=== PATIENT | male | born 2000 | race Caucasian/White ===

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

== ENCOUNTER 2019-02-01 14:34 | Emergency (ER) | payer OTHER ==
[~2019-02-01] VITALS: Ht 177.8 cm; Wt 106.5 kg
[~2019-02-01 14:34] MED LIST changes: +ALPR1TAB7 PO; +CHOL500051 PO; -CIPR500T4 PO; -FLUO20CA22 PO; +LITH300T PO; -METR-122 PO; -PROP10TA6 PO; +QUET100T32; +QUET400T11 PO; -TRA50 PO; +VENL150C94 PO; +ZOLP10TA5 PO
[2019-02-01 14:35] VITALS: Ht 177.8 cm; Wt 106.5 kg
--- NOTE | 2019-02-01 15:53 | ERD ---
ER Documentation Chief Complaint Chief Complaint AP X 1 WEEK HPI 18-year-old male, presents the emergency department, complaining of abdominal pain for 1 week, the pain is described as colicky, intermittent, 01/07. The patient has history of diverticulitis and he feels like the symptoms are similar but less intense. He denies fever, no chills, no diarrhea or constipation, no blood in the stools, no nausea vomiting. ROS All systems reviewed and are negative except as per history of present illness. Medications Home Meds Active Scripts Acetaminophen* (Tylenol*) 325 Mg Tablet, 2 TAB PO Q6 PRN for PAIN AND OR ELEVATED TEMP, #20 TAB Prov:JASPER MILLARD MD 02/01/19 Metronidazole* (Flagyl*) 500 Mg Tablet, 500 MG PO TID for 10 Days, #30 TAB Prov:JASPER MILLARD MD 02/01/19 Ciprofloxacin Hcl* (Ciprofloxacin Hcl*) 500 Mg Tablet, 500 MG PO BID for 10 Days, TAB Prov:JASPER MILLARD MD 02/01/19 Reported Medications Quetiapine Fumarate* (Quetiapine Fumarate*) 100 Mg Tablet 11/29/18 Alprazolam* (Alprazolam*) 1 Mg Tablet, 1 MG PO BID for 30 Days, #60 11/29/18 Quetiapine Fumarate* (Quetiapine Fumarate*) 400 Mg Tablet, 400 MG PO QHS for 30 Days, #30 TAKE 1 TABLET (400 MG) BY MOUTH AT BEDTIME NEEDED FOR INSOMNIA; 30 Days Quantity #30 11/29/18 Zolpidem Tartrate* (Zolpidem Tartrate*) 10 Mg Tablet, 10 MG PO QHS for 30 Days, #30 11/29/18 [place] Carbonate ([place] Carbonate) 300 Mg Tablet.sa, 600 MG PO QHS TAKE ONE TABLET BY MOUTH AT BEDTIME FOR 4 DAYS THEN 2 AT BEDTIME; 30 Days 11/29/18 Venlafaxine Hcl* (Venlafaxine Hcl ER*) 150 Mg Cap.er.24h, 150 MG PO QHS for 30 Days, #30 11/29/18 Cholecalciferol (Vitamin D3) (Vitamin D3) 50,000 Unit Capsule, 33788 U PO QFRI 11/29/18 Allergies Allergies: Coded Allergies: No Known Drug Allergies (Verified Allergy, Unknown, 03/06/18) PMhx/Soc History of Surgery: No Anesthesia Reaction: No Hx Neurological Disorder: No Hx Respiratory Disorders: No Hx Cardiac Disorders: No Hx Psychiatric Problems: Yes Hx Miscellaneous Medical Probl: Yes (DIVERTICULITIS-2018) Hx Alcohol Use: No Hx Substance Use: Yes (MARIJUANA) Hx Tobacco Use: No Smoking Status: Never smoker FmHx Family History: No diabetes, No coronary disease Physical Exam Vitals Vital Signs Date Temp Pulse Resp B/P (MAP) Pulse Ox O2 O2 Flow FiO2 Time Delivery Rate 02/01/19 98.0 92 17 130/68 98 Room Air 18:14 (88) 02/01/19 98.4 98 20 134/79 97 14:35 (97) Physical Exam Const: No acute distress Head: Atraumatic Eyes: Normal Conjunctiva ENT: Normal External Ears, Nose and Mouth. Neck: Full range of motion. No meningismus. Resp: Clear to auscultation bilaterally Cardio: Regular rate and rhythm, no murmurs Abd: Soft, mild tenderness to deep palpation but no definitive peritoneal signs, non distended. Normal bowel sounds Skin: No petechiae or rashes Back: No midline or flank tenderness Ext: No cyanosis, or edema Neur: Awake and alert Psych: Normal Mood and Affect Result Diagram: 02/01/19 1604 02/01/19 1604 Results 24 hrs Laboratory Tests Test 02/01/19 16:04 White Blood Count 15.9 10^3/ul Red Blood Count 5.00 10^6/ul Hemoglobin 14.4 g/dl Hematocrit 43.3 % Mean Corpuscular Volume 86.6 fl Mean Corpuscular Hemoglobin 28.8 pg Mean Corpuscular Hemoglobin Concent 33.3 g/dl Red Cell Distribution Width 14.0 % Platelet Count 339 10^3/UL Mean Platelet Volume 9.4 fl Immature Granulocytes % 0.400 % Neutrophils % 72.5 % Lymphocytes % 17.5 % Monocytes % 9.0 % Eosinophils % 0.3 % Basophils % 0.3 % Nucleated Red Blood Cells % 0.0 /100WBC Immature Granulocytes # 0.070 10^3/ul Neutrophils # 11.6 10^3/ul Lymphocytes # 2.8 10^3/ul Monocytes # 1.4 10^3/ul Eosinophils # 0.0 10^3/ul Basophils # 0.0 10^3/ul Nucleated Red Blood Cells # 0.0 10^3/ul Urine Color YELLOW Urine Clarity CLEAR Urine pH 5.0 Urine Specific [place] 1.025 Urine Ketones NEGATIVE mg/dL Urine Nitrite NEGATIVE mg/dL Urine Bilirubin NEGATIVE mg/dL Urine Urobilinogen 1+ mg/dL Urine Leukocyte Esterase NEGATIVE [place]/ul Urine Microscopic RBC 0 /HPF Urine Microscopic WBC 1 /HPF Urine Mucus MANY /HPF Urine Hemoglobin 1+ mg/dL Urine Glucose NEGATIVE mg/dL Urine Total Protein NEGATIVE mg/dl Sodium Level 144 mmol/L Potassium Level 4.3 mmol/L Chloride Level 104 mmol/L Carbon Dioxide Level 28 mmol/L Anion Gap 12 Blood Urea Nitrogen 8 mg/dl Creatinine 0.80 mg/dl Est Glomerular Filtrat Rate mL/min > 60 mL/min Glucose Level 95 mg/dl Calcium Level 9.7 mg/dl Total Bilirubin 1.4 mg/dl Direct Bilirubin 0.00 mg/dl Indirect Bilirubin 1.4 mg/dl Aspartate Amino Transf (AST/SGOT) 19 IU/L Alanine Aminotransferase (ALT/SGPT) 82 IU/L Alkaline Phosphatase 92 IU/L Total Protein 8.0 g/dl Albumin 4.6 g/dl Globulin 3.40 g/dl Albumin/Globulin Ratio 1.35 Lipase 30 U/L Current Medications Medications Dose Sig/Jostin Start Time Status Last (Trade) Ordered Route PRN Stop Time Admin Dose Reason Admin Sodium 1,000 ml @ Q1H STAT 02/01/19 DC 02/01/19 Chloride 1,000 mls/hr IV 15:54 02/01/19 16:11 16:53 Ondansetron 4 mg ONCE STAT 02/01/19 DC 02/01/19 HCl (Zofran IV 15:54 02/01/19 16:10 Inj) 16:01 Famotidine 20 mg ONCE STAT 02/01/19 DC 02/01/19 (Pepcid Iv) IV 15:54 02/01/19 16:10 16:01 Piperacillin 100 ml @ ONCE ONCE 02/01/19 DC 02/01/19 Sod/ 200 mls/hr IVPB 16:00 02/01/19 16:13 Tazobactam 16:29 Sod IV Flush 10 ml STK-MED 02/01/19 DC (NS 10 ml) ONCE .ROUTE 16:43 02/01/19 16:44 Sodium 100 ml @ ud STK-MED 02/01/19 DC Chloride ONCE .ROUTE 16:43 02/01/19 16:44 Iohexol 150 ml STK-MED 02/01/19 DC (Omnipaque ONCE .ROUTE 16:43 02/01/19 300mg/ ml) 16:44 Patient: EB KING : 2000 Age: 18 Sex: M MR #: [id number] DOS: 02/01/19 1554 Ordering MD: JASPER MILLARD MD Location: [facility] Room/Bed: PROCEDURE: CT Abdomen and Pelvis with contrast CLINICAL INDICATION: Abdominal pain TECHNIQUE: Transaxial computed tomographic images of the abdomen and pelvis were obtained following the uneventful administration of 90 mL Omnipaque-300 intravenous contrast according to standard protocol. Coronal and sagittal reformatted images were provided. DICOM images are available. Radiation dose: CTDIvol (mGy) = 22.22; total DLP (mGy.cm) = 1502.39. One or more of the following dose reduction techniques were used: - Automated exposure control. - Adjustment of the mA and/or kV according to patient size. - Use of iterative reconstruction technique. COMPARISON: CT of the abdomen and pelvis dated 03/06/2018. FINDINGS: The visualized lung bases are clear. There is no pleural effusion. The liver is enlarged measuring 25 cm in craniocaudal diameter and diffusely hypoattenuating representing diffuse hepatic steatosis. No focal hepatic lesion is seen. The gallbladder is contracted. The spleen, pancreas, adrenal glands, and kidneys are normal. There is no evidence of intestinal obstruction. There is sigmoid diverticulosis with long segment wall thickening of the sigmoid colon with extensive pericolonic fluid and fat stranding representing acute diverticulitis. The few locules of gas along the anterior wall of the inflamed sigmoid colon likely represent a contained microperforation (series 3 image 154). Colonic diverticula are also seen in the descending colon. The appendix is normal. There is no free intraperitoneal air. There is no suspicious mesenteric or retroperitoneal lymphadenopathy. A few prominent subcentimeter lymph nodes are identified adjacent to the sigmoid colon measuring up to 7 mm in short axis (series 3 image 144). The abdominal aorta is of normal diameter. Urinary bladder is normal. The prostate is within normal limits. The osseous structures of the abdomen and pelvis are intact. IMPRESSION: 1. Findings consistent with acute diverticulitis of the sigmoid colon with wall thickening of the sigmoid colon and extensive pericolonic fluid and fat stranding. No pericolonic abscess. A few locules of gas adjacent to the inflamed sigmoid colon likely represent microperforation. No free intraperitoneal air. 2. Hepatomegaly with diffuse hepatic steatosis. The findings were discussed with Dr. Sanches in the ER at 05:50 p.m. on 02/01/[address] Gonzalez. Procedures/MDM Vital signs stable. Differential diagnosis include but not limited to: UTI, colitis, gastroenteritis, kidney stones, irritable bowel syndrome, inflammatory bowel syndrome, malabsorption syndrome, cholelithiasis, food intolerance, medication side effect, pancreatitis, diverticulitis, bowel obstruction. Physical examination and clinical presentation consistent most likely with diverticulitis. During the ED course the patient remained stable, no new complaints. The patient received treatment with IV fluids and IV medications presenting overall improvement of the symptoms. Results and clinical impression discussed with the patient who agrees with management. The patient is stable to be treated outpatient and will be discharged home; some side effects of prescribed medications (headache, rash, nausea, vomiting, diarrhea, drowsiness, habituation, bleeding, hypertension, interactions with other medications) were reviewed. Instructions explained and given directly by me to the patient with acknowledgme nt and demonstrated understanding. Disclaimer: Inadvertent spelling and grammatical errors are likely due to EHR/dictation software use and do not reflect on the overall quality of patient care. Also, please note that the electronic time recorded on this note does not necessarily reflect the actual time of the patient encounter. Departure Diagnosis: Primary Impression: Diverticulitis Condition: Stable Additional Instructions: Thank you very much for allowing us to participate in your care. Your health and safety is our top priority at [facility]. The evaluation in the emergency department has been done to rule out an acute emergency, therefore, chronic conditions like malignancy or other diseases have not been evaluated; therefore, you need to follow up with a primary care provider in the next 48h. If symptoms persist, worsen or new symptoms develop, then patient should return to the ED immediately. Call your primary care doctor TOMORROW for an appointment during the next 2-4 days and bring all the information provided. Have prescriptions filled and follow precisely the directions on the label. If the symptoms get worse and your provider is unavailable, return to the Emergency Department immediately. JASPER MILLARD MD February 01, 2019 15:53
[2019-02-01] MEDS ORDERED: ONDANSETRON 4 MG INJ IV STA (15:54)
[2019-02-01] MEDS ORDERED: FAMOTIDINE 20 MG INJ IV STA (15:54)
[2019-02-01] MEDS ORDERED: SOD CHLORIDE 0.9% 1,000 ML IV STA (15:54)
[2019-02-01] MEDS ORDERED: PIPER-TAZO 3.375 GM IV (PMX) 100 ML IVPB ONE (16:00)
[2019-02-01] MEDS ORDERED: IOHEXOL 300MG/ML 150 ML BTL ONE (16:43)
[2019-02-01] MEDS ORDERED: SOD CHLORIDE 0.9% 100 ML ONE (16:43)
[2019-02-01] MEDS ORDERED: METR500T PO (18:07)
[2019-02-01] MEDS ORDERED: CIPR500T4 PO (18:07)
[2019-02-01] MEDS ORDERED: ACET325T33 PO (18:07)
[2019-02-01 18:14] VITALS: BP 130/68; PULSE 92; RESP 17
== END 2019-02-01 18:16 | disposition home or self-care (01) ==
LOC: FTE 14:34
DX: K57.32 Diverticulitis of large intestine without perforation or abscess without bleeding (principal)
CPT/HCPCS: 36415; 74177; 80053; 81001; 83690; 85025; 96365; 96375; J2405; J2543; J7030; Q9967; Z7502; Z7610